=== PATIENT | male | born 1965 | race African-American/Black ===

== ENCOUNTER 2016-07-15 12:53 | Emergency (ER) | payer MEDICARE ==
[~2016-07-15] VITALS: Ht 175.3 cm; Wt 125.0 kg
[~2016-07-15 12:53] MED LIST: ACCUPRIL20 MG PO; ACTOS15 MG PO; AMLODIPINE10 MG OR; AMOXICILLIN875 MG PO; BACTRIM DS1 TAB OR; BACTRIM DS1 TAB PO; BENAZEPRIL5 M1; BENAZEPRIL5 MG PO; BUPROPION150 MG PO; CARDURA4 MG PO; CEPHALEXIN500 MG PO; CIPRO500 MG OR; CIPRODEX1 ML OT; CLINDAMYCIN300 MG PO; CLONIDINE0.2 MG PO; COUMADIN5 MG PO; DOXAZOSIN4 M1 OR; DOXAZOSIN4 MG PO; DURAGESIC25 MCG/PAT TD; ELIQUIS5 MG PO; FOSRENOL1000 MG PO; FUROSEMIDE80 MG PO; GABAPENTIN100 MG PO; GENTAMICIN0.1 % IO; HCTZ; HUMULIN 70/30 SC; HYDROCHLORO25 MG/TAB PO; HYDROCHLOROT25 MG PO; HYDROXYZ HCL25 MG PO; INSULIN SY0.5 MG/35 XX; LABETALOL200 MG OR; LASIX 40 MG TAB40 MG OR; LIPITOR20 MG PO; LISINOPRIL20 M1 OR; LOPRESSOR50 MG PO; LORTAB 10-325 M1 TAB PO; LORTAB 7.5 PO; LOTRISONE TOP; LYRICA150 M1 PO; LYRICA25 MG PO; METOLAZONE2.5 MG PO; METOPROL TAR100 MG PO; MICARDIS H80 MG/25 M OR; MICARDIS80 MG OR; MICARDIS80 MG PO; NIFEDIPINE90 MG PO; NORVASC10 M1; NOVOLIN 70/30 SC; RENAL PO; RENVELA800 MG PO; SENSIPAR60 MG PO; SIMVASTATIN20 MG OR; TEMAZEPAM15 MG PO; TORSEMIDE20 M1 PO; VELPHORO500 MG PO; VISTARIL25 MG PO; VITAMIN D2000 UNI1 PO; VITAMIN D50000 UNT OR; [UNRECOGNIZED DRUG - CODE] OR; [UNRECOGNIZED DRUG - OTHER]
[2016-07-15 14:18] LABS: HEMATOCRIT 42.5 % (39.0-50.0); HEMOGLOBIN 13.4 g/dl (14.0-18.0); IMMATURE GRANULOCYTES 2.7 % (0.0-1.0); MEAN CORPUSCULAR HGB 30.6 pG CALC (26.0-32.0); MEAN CORPUSCULAR HGB CONC 31.5 g/L CALC (32.0-36.0); NEUT# 25.5 thou/uL (1.82-7.42); RED BLOOD COUNT 4.38 mill/uL (4.70-6.10); RED CELL DISTRI WIDTH 15.3 % (11.5-15.5)
[2016-07-15 14:31] LABS: ALBUMIN 4.4 g/dL (3.2-5.0); BILIRUBIN, TOTAL 0.6 mg/dL (0.0-1.4); CALCIUM 8.8 mg/dL (8.4-10.2); TOTAL PROTEIN 9.1 g/dL (6.3-8.2)
[2016-07-15 14:34] LABS: CREATININE 13.9 mg/dL (0.7-1.3)
[2016-07-15 16:43] VITALS: BP 160/74
== END 2016-07-15 17:45 ==
LOC: ED 12:53
PROVIDERS: Emergency Medicine
DX: R07.9 Chest pain, unspecified (principal); L02.214 Cutaneous abscess of groin; B95.2 Enterococcus as the cause of diseases classified elsewhere; E87.5 Hyperkalemia; I12.0 Hypertensive chronic kidney disease with stage 5 chronic kidney disease or end stage renal disease; N18.6 End stage renal disease; Z99.2 Dependence on renal dialysis; E11.9 Type 2 diabetes mellitus without complications; Z79.4 Long term (current) use of insulin
CPT/HCPCS: J0713

== ENCOUNTER 2016-08-29 20:43 | Emergency (ER) | payer MEDICARE ==
[~2016-08-29] VITALS: Ht 152.4 cm; Wt 129.0 kg
[2016-08-29] MEDS ORDERED: BENADRY2 EX (21:08)
[2016-08-29] MEDS ORDERED: BENADRYL 50MG C50 MG PO (21:09)
[2016-08-29 21:22] VITALS: BP 158/72
== END 2016-08-29 21:28 | disposition home or self-care (01) ==
LOC: ED 20:43
DX: L70.9 Acne, unspecified (principal); I13.2 Hypertensive heart and chronic kidney disease with heart failure and with stage 5 chronic kidney disease, or end stage renal disease; N18.6 End stage renal disease; I50.9 Heart failure, unspecified; E11.22 Type 2 diabetes mellitus with diabetic chronic kidney disease; Z99.2 Dependence on renal dialysis

== ENCOUNTER 2016-10-11 12:27 | Emergency (ER) | payer MEDICARE ==
[~2016-10-11 12:27] MED LIST changes: +BENADRY2 EX; +BENADRYL 50MG C50 MG PO
== END 2016-10-11 13:15 | disposition expired ==
LOC: ED 12:27
PROC: 0BH17EZ Insertion of Endotracheal Airway into Trachea, Via Natural or Artificial Opening (ICD-10-PCS; principal; 2016-10-11)
PROC: 0D9670Z Drainage of Stomach with Drainage Device, Via Natural or Artificial Opening (ICD-10-PCS; 2016-10-11)
DX: I46.9 Cardiac arrest, cause unspecified (principal); I12.0 Hypertensive chronic kidney disease with stage 5 chronic kidney disease or end stage renal disease; N18.6 End stage renal disease; Z99.2 Dependence on renal dialysis; S90.822A Blister (nonthermal), left foot, initial encounter; S90.821A Blister (nonthermal), right foot, initial encounter; Z48.00 Encounter for change or removal of nonsurgical wound dressing